=== PATIENT | male | born 1940 | race Caucasian/White ===

== ENCOUNTER 2017-06-24 17:12 | Emergency (ER) | payer OTHER ==
[2017-06-24] MEDS ORDERED: Sodium Chloride 0.9% 500 ML IV SCH (17:30)
[2017-06-24 18:02] LABS: CHLORIDE,CL 98 mmol/L (98-115); SODIUM,NA 139 mmol/L (136-145)
--- NOTE | 2017-06-24 18:02 | EDM.PDOC ---
ED HPI GENERAL MEDICAL PROBLEM - General Chief Complaint: Abdominal Pain Stated Complaint: ABDOMINAL PAIN Time Seen by Provider: 06/24/17 17:35 Source of Information: Reports: Patient History Limitations: Reports: No Limitations - History of Present Illness INITIAL COMMENTS - FREE TEXT/NARRATIVE: 77 YO WM presents to ER complaining of lower abdominal and low back pain x 2 weeks. Pt reports he has been having constipation and anorexia as well. Pt with PMH of lymphoma and bladder CA. Pt finished chemo for lymphoma 12/2016. Pt reports he has been followed closely by oncology. Pt has had CT abd/pelvis imaging in the recent past which showed no abnormalities. Pt denies fever/chills , no nausea/vomiting. Pt reports passing gas and has had recent BM of hard stool without blood. Pt denies dysuria, frequency or urgency. Onset Date: 06/10/17 Duration: Week(s): (2) Location: Reports: Abdomen, Back Quality: Reports: Ache Severity: Mild Improves with: Reports: None Worsens with: Reports: None Associated Symptoms: Reports: No Other Symptoms. Denies: Cough, Fever/Chills, Nausea/Vomiting, Shortness of Breath Lower Abdominal Pain Score (Numeric/FACES): 10 - Related Data Allergies Allergy/AdvReac Type Severity Reaction Status Date / Time No Known Drug Allergies Allergy Cannot Verified 06/24/17 17:21 Remember Home Meds: Home Meds Aspirin [Children's Aspirin] 81 mg PO BEDTIME 06/24/17 [History] Cephalexin [Keflex] 250 mg PO Q6H #40 cap 06/24/17 [Rx] Phenazopyridine [Pyridium] 200 mg PO TID PRN #6 tablet 06/24/17 [Rx] Polyethylene Glycol 3350 [MiraLAX] 17 gm PO DAILY #30 packet 06/24/17 [Rx] Simvastatin [Zocor] 10 mg PO BEDTIME 06/24/17 [History] ED ROS GENERAL - Review of Systems Review Of Systems: See Below Constitutional: Reports: Weight Loss HEENT: Reports: No Symptoms Respiratory: Reports: No Symptoms Cardiovascular: Reports: No Symptoms Endocrine: Reports: No Symptoms GI/Abdominal: Reports: Abdominal Pain, Constipation, Decreased Appetite, Flatus : Reports: No Symptoms, Frequency Musculoskeletal: Reports: No Symptoms Skin: Reports: No Symptoms Neurological: Reports: No Symptoms Psychiatric: Reports: No Symptoms Hematologic/Lymphatic: Reports: No Symptoms Immunologic: Reports: No Symptoms ED EXAM, GI/ABD - Physical Exam Exam: See Below Exam Limited By: No Limitations General Appearance: Alert, WD/WN, No Apparent Distress Head: Atraumatic, Normocephalic Neck: Normal Inspection, Supple, Non-Tender, Full Range of Motion Respiratory/Chest: No Respiratory Distress, Lungs Clear, Normal Breath Sounds, No Accessory Muscle Use, Chest Non-Tender Cardiovascular: Normal Peripheral Pulses, Regular Rate, Rhythm, No Edema, No Gallop, No JVD, No Murmur, No Rub GI/Abdominal Exam: Normal Bowel Sounds, Soft, Non-Tender, No Organomegaly, No Distention, No Abnormal Bruit, No Mass, Pelvis Stable Back Exam: Normal Inspection, Full Range of Motion, NT Extremities: Normal Inspection, Normal Range of Motion, Non-Tender, Normal Capillary Refill, No Pedal Edema Neurological: Alert, Oriented, CN II-XII Intact, Normal Cognition, Normal Gait, Normal Reflexes, No Motor/Sensory Deficits Psychiatric: Normal Affect, Normal Mood Skin Exam: Warm, Dry, Intact, Normal Color, No Rash Lymphatic: No Adenopathy Course - Vital Signs Last Recorded V/S: Last Vital Signs Temp 36.2 C 06/24/17 17:18 Pulse 106 H 06/24/17 17:18 Resp 20 06/24/17 17:18 BP 120/71 06/24/17 17:18 Pulse Ox 94 L 06/24/17 17:18 - Orders/Labs/Meds Orders: Active Orders 24 hr Category Date Time Status Abdomen 1V Flat [CR] Stat Exams 06/24/17 17:28 Ordered Sodium Chloride 0.9% [Normal Saline] 500 ml Med 06/24/17 17:30 Active IV .BOLUS Medication Orders Sodium Chloride (Normal Saline) 500 mls @ 999 mls/hr IV .BOLUS JELANI Labs: Laboratory Tests 06/24/17 06/24/17 06/24/17 Range/Units 17:40 17:40 18:09 WBC 6.1 (5.0-10.0) 10^3/uL RBC 4.17 L (4.50-6.00) 10^6/uL Hgb 12.3 L (13.0-17.0) g/dL Hct 39.8 L (40.0-52.0) % MCV 95.5 H (82.0-92.0) fL MCH 29.5 (27.0-31.0) pg MCHC 30.9 L (32.0-36.0) g/dL RDW 16.0 H (11.5-14.5) % Plt Count 206 (150-300) 10^3/uL MPV 7.2 L (7.4-10.4) fL Neut % (Auto) 80.5 H (50.0-70.0) % Lymph % (Auto) 6.7 L (20.0-40.0) % [place] % (Auto) 12.1 H (2.0-8.0) % Eos % (Auto) 0.7 L (1.0-3.0) % Baso % (Auto) 0.0 (0.0-1.0) % Neut # (Auto) 5.0 (2.5-7.0) 10^3/uL Lymph # (Auto) 0.4 L (1.0-4.0) 10^3/uL [place] # (Auto) 0.7 (0.1-0.8) 10^3/uL Eos # (Auto) 0.0 L (0.1-0.3) 10^3/uL Baso # (Auto) 0.0 (0.0-0.1) 10^3/uL Sodium 139 (136-145) mmol/L Potassium 4.2 (3.3-5.3) mmol/L Chloride 98 (98-115) mmol/L Carbon Dioxide 33.3 H (21.0-32.0) mmol/L BUN 21 (6-25) mg/dL Creatinine 1.08 (0.51-1.17) mg/dL Est Cr Clr Drug Dosing 36.75 mL/min Estimated GFR (MDRD) > 60 mL/min Glucose 128 H (70-110) mg/dL Calcium 9.6 (8.7-10.3) mg/dL Total Bilirubin 0.4 (0.2-1.0) mg/dL AST 23 (15-37) U/L ALT 18 (12-78) U/L Alkaline Phosphatase 110 (46-116) IU/L Total Protein 7.3 (6.4-8.2) g/dL Albumin 2.86 L (3.00-4.80) g/dL Lipase 133 (73-393) U/L Specimen Type Urinvoid Urine Color Yellow (YELLOW) Urine Appearance Clear (CLEAR) Urine pH 5.5 (5.0-9.0) Ur Specific [place] 1.015 (1.005-1.030) Urine Protein Negative (NEGATIVE) mg/dL Urine Glucose (UA) Negative (NEGATIVE) mg/dL Urine Ketones Negative (NEGATIVE) mg/dL Urine Occult Blood Trace-lysed H (NEGATIVE) Urine Nitrite Negative (NEGATIVE) Urine Bilirubin Negative (NEGATIVE) Urine Urobilinogen 0.2 (0.2-1.0) E.U./dL Ur Leukocyte Esterase Trace H (NEGATIVE) Urine RBC 0-5 /HPF Urine WBC 20-30 H /HPF Ur Epithelial Cells Few /LPF Urine Bacteria Few (NONE TO FEW) /HPF Meds: Medications Generic Name Dose Route Start Last Admin Trade Name Freq PRN Reason Stop Dose Admin Sodium Chloride 500 mls @ 999 mls/hr 06/24/17 17:30 Normal Saline IV .BOLUS JELANI - Radiology Interpretation Free Text/Narrative:: 1. KUB- nonspecific bowel gas pattern; NAD Departure - Departure Time of Disposition: 18:47 Disposition: Home, Self-Care 01 Condition: Good Clinical Impression: Abdominal pain Qualifiers: Abdominal location: lower abdomen, unspecified Qualified Code(s): R10.30 - Lower abdominal pain, unspecified Constipation Qualifiers: Constipation type: unspecified constipation type Qualified Code(s): K59.00 - Constipation, unspecified Urinary tract infection Qualifiers: Urinary tract infection type: acute cystitis Hematuria presence: without hematuria Qualified Code(s): N30.00 - Acute cystitis without hematuria - Discharge Information Prescriptions: Cephalexin [Keflex] 250 mg PO Q6H #40 cap Phenazopyridine [Pyridium] 200 mg PO TID PRN #6 tablet PRN Reason: Pain Polyethylene Glycol 3350 [MiraLAX] 17 gm PO DAILY #30 packet Instructions: Constipation, Adult, [id number], Abdominal Pain, Adult, Easy-to -Read, Urinary Tract Infection, Adult Referrals: PCP,Not In Area [Primary Care Provider] - Forms: ED Department Discharge - My Orders Last 24 Hours: My Active Orders 06/24/17 17:28 Abdomen 1V Flat [CR] Stat 06/24/17 17:30 Sodium Chloride 0.9% [Normal Saline] 500 ml IV .BOLUS - Assessment/Plan Last 24 Hours: My Active Orders 06/24/17 17:28 Abdomen 1V Flat [CR] Stat 06/24/17 17:30 Sodium Chloride 0.9% [Normal Saline] 500 ml IV .BOLUS Assessment:: 1. UTI 2. constipation Plan: 1. Keflex 500mg PO Q6 x 10 days 2. magnesium citrate PRN 3. miralax QD 4. follow up with PCP for recheck 5. return to ER for worsening symptoms
[2017-06-24] MEDS ORDERED: Cephalexin 250 MG Cap PO ONE (18:35)
[2017-06-24] MEDS ORDERED: Phenazopyridine 100 MG Tab PO ONE (18:47)
== END 2017-06-24 19:00 | disposition home or self-care (01) ==
LOC: KA.ED 17:12
DX: N30.00 Acute cystitis without hematuria (principal); K59.00 Constipation, unspecified; Z79.899 Other long term (current) drug therapy
CPT/HCPCS: 36415; 74018; 80053; 81001; 83690; 85025; 99284; A9270; J7040

== ENCOUNTER 2017-07-06 17:13 | Emergency (ER) | payer OTHER ==
[2017-07-06] MEDS ORDERED: Sodium Chloride 0.9% 50 ML IV SCH (17:44)
[2017-07-06] MEDS ORDERED: Iopamidol 612 MG/ML 75 ML Bottle IV ONE (17:49)
[2017-07-06] MEDS ORDERED: Sodium Chloride 0.9% 1,000 ML IV ONE (18:05)
[2017-07-06] MEDS ORDERED: Sodium Chloride 0.9% 5 ML Syringe FLUSH PRN (18:05)
[2017-07-06 18:19] LABS: CHLORIDE,CL 100 mmol/L (98-115); SODIUM,NA 142 mmol/L (136-145)
--- NOTE | 2017-07-06 18:24 | EDM.PDOC ---
ED HPI GENERAL MEDICAL PROBLEM - General Chief Complaint: General Stated Complaint: back pain Time Seen by Provider: 07/06/17 18:18 Source of Information: Reports: Patient History Limitations: Reports: No Limitations - History of Present Illness INITIAL COMMENTS - FREE TEXT/NARRATIVE: Patient is a 77-year-old gentleman who presents to the emergency department with a complaint of lower abdominal pain. Pain is been going on for several weeks. Patient was admitted to the [place] one month ago for a 5 day stay. Patient was seen here on 06/24/2017 for similar symptoms and found to have a urinary tract infection. Patient does have a history of bladder cancer. Patient denies fever, cough, shortness of breath, chest pain, or any trauma. Onset: Gradual Duration: Week(s): Location: Reports: Abdomen Quality: Reports: Ache, Other (Cramping) Improves with: Reports: None Worsens with: Reports: None Associated Symptoms: Reports: Loss of Appetite, Malaise. Denies: Chest Pain, Cough, Nausea/Vomiting, Shortness of Breath Lower Back Pain Score (Numeric/FACES): 7 - Related Data Allergies Allergy/AdvReac Type Severity Reaction Status Date / Time No Known Drug Allergies Allergy Cannot Verified 06/24/17 17:21 Remember Home Meds: Home Meds Aspirin [Children's Aspirin] 81 mg PO BEDTIME 06/24/17 [History] Simvastatin [Zocor] 10 mg PO BEDTIME 06/24/17 [History] Social & Family History - Tobacco Use Smoking Status *Q: Former Smoker Years of Tobacco use: 60 Packs/Tins Daily: 1 Used Tobacco, but Quit: Yes Month Tobacco Last Used: jun 02 2017 - Caffeine Use Caffeine Use: Reports: Coffee, Soda, Tea - Recreational Drug Use Recreational Drug Use: No ED ROS GENERAL - Review of Systems Review Of Systems: ROS reveals no pertinent complaints other than HPI. Constitutional: Reports: Malaise, Decreased Appetite HEENT: Reports: No Symptoms Respiratory: Reports: No Symptoms Cardiovascular: Reports: No Symptoms Endocrine: Reports: No Symptoms GI/Abdominal: Reports: Abdominal Pain : Reports: Frequency Musculoskeletal: Reports: No Symptoms Skin: Reports: No Symptoms Neurological: Reports: No Symptoms Psychiatric: Reports: No Symptoms Hematologic/Lymphatic: Reports: No Symptoms Immunologic: Reports: No Symptoms ED EXAM, GENERAL - Physical Exam Exam: See Below Exam Limited By: No Limitations General Appearance: Alert, WD/WN, No Apparent Distress, Thin Eye Exam: Bilateral Eye: Normal Inspection Nose: Normal Inspection, Normal Mucosa, No Blood Throat/Mouth: Normal Inspection, Normal Oropharynx, No Airway Compromise Head: Atraumatic, Normocephalic Neck: Normal Inspection Respiratory/Chest: No Respiratory Distress, Lungs Clear, Normal Breath Sounds, No Accessory Muscle Use, Chest Non-Tender Cardiovascular: Regular Rate, Rhythm, No Murmur GI/Abdominal: Normal Bowel Sounds, Soft, Tender (Suprapubic) (Male) Exam: Normal Inspection Back Exam: Normal Inspection. No: CVA Tenderness (L), CVA Tenderness (R) Extremities: Normal Inspection, Non-Tender, No Pedal Edema Neurological: Alert, Oriented, Normal Cognition Psychiatric: Normal Affect, Normal Mood Skin Exam: Warm, Dry, Intact, Normal Color, No Rash Lymphatic: No Adenopathy Course - Orders/Labs/Meds Orders: Active Orders 24 hr Category Date Time Status Peripheral IV Care [RC] . DIRECTED Care 07/06/17 18:05 Active Abdomen Pelvis w Cont [CT] Stat Exams 07/06/17 18:04 Ordered Sodium Chloride 0.9% [Syrex Flush] Med 07/06/17 18:05 Active 5 ml FLUSH Q8HR PRN Peripheral IV Insertion Adult [OM.PC] Routine Oth 07/06/17 18:05 Ordered Medication Orders Sodium Chloride (Syrex Flush) 5 ml FLUSH Q8HR PRN PRN Reason: Keep Vein Open Labs: Laboratory Tests 07/06/17 07/06/17 07/06/17 Range/Units 17:55 17:55 18:55 WBC 5.5 (5.0-10.0) 10^3/uL RBC 3.70 L (4.50-6.00) 10^6/uL Hgb 11.0 L (13.0-17.0) g/dL Hct 34.0 L (40.0-52.0) % MCV 91.9 (82.0-92.0) fL MCH 29.8 (27.0-31.0) pg MCHC 32.4 (32.0-36.0) g/dL RDW 14.4 (11.5-14.5) % Plt Count 349 H (150-300) 10^3/uL MPV 7.6 (7.4-10.4) fL Neut % (Auto) 77.1 H (50.0-70.0) % Lymph % (Auto) 6.6 L (20.0-40.0) % [place] % (Auto) 15.3 H (2.0-8.0) % Eos % (Auto) 0.2 L (1.0-3.0) % Baso % (Auto) 0.8 (0.0-1.0) % Neut # (Auto) 4.3 (2.5-7.0) 10^3/uL Lymph # (Auto) 0.4 L (1.0-4.0) 10^3/uL [place] # (Auto) 0.8 (0.1-0.8) 10^3/uL Eos # (Auto) 0.0 L (0.1-0.3) 10^3/uL Baso # (Auto) 0.0 (0.0-0.1) 10^3/uL Sodium 142 (136-145) mmol/L Potassium 3.7 (3.3-5.3) mmol/L Chloride 100 (98-115) mmol/L Carbon Dioxide 33.3 H (21.0-32.0) mmol/L BUN 21 (6-25) mg/dL Creatinine 1.04 (0.51-1.17) mg/dL Est Cr Clr Drug Dosing TNP Estimated GFR (MDRD) > 60 mL/min Glucose 162 H (70-110) mg/dL Calcium 9.3 (8.7-10.3) mg/dL Total Bilirubin 0.2 (0.2-1.0) mg/dL AST 29 (15-37) U/L ALT 20 (12-78) U/L Alkaline Phosphatase 103 (46-116) IU/L Total Protein 6.9 (6.4-8.2) g/dL Albumin 2.68 L (3.00-4.80) g/dL Specimen Type Urinvoid Urine Color Yellow (YELLOW) Urine Appearance Clear (CLEAR) Urine pH 6.5 (5.0-9.0) Ur Specific [place] 1.020 (1.005-1.030) Urine Protein Trace H (NEGATIVE) mg/dL Urine Glucose (UA) Negative (NEGATIVE) mg/dL Urine Ketones Negative (NEGATIVE) mg/dL Urine Occult Blood Negative (NEGATIVE) Urine Nitrite Negative (NEGATIVE) Urine Bilirubin Negative (NEGATIVE) Urine Urobilinogen 0.2 (0.2-1.0) E.U./dL Ur Leukocyte Esterase Negative (NEGATIVE) Urine RBC 0-5 /HPF Urine WBC 0-5 /HPF Ur Epithelial Cells Few /LPF Urine Bacteria Few (NONE TO FEW) /HPF Meds: Medications Generic Name Dose Route Start Last Admin Trade Name Freq PRN Reason Stop Dose Admin Sodium Chloride 5 ml 07/06/17 18:05 Syrex Flush FLUSH Q8HR PRN Keep Vein Open Discontinued Medications Generic Name Dose Route Start Last Admin Trade Name Freq PRN Reason Stop Dose Admin Sodium Chloride 1,000 mls @ 999 mls/hr 07/06/17 18:05 Normal Saline IV 07/06/17 19:05 .BOLUS ONE - Radiology Interpretation Free Text/Narrative:: CT abdomen and pelvis shows retroperitoneal adenopathy, nonspecific bilateral lower lobe lung nodules, no evidence of obstruction. These findings are not of an acute nature. CT Results Date: 07/06/17 - Re-Assessments/Exams Free Text/Narrative Re-Assessment/Exam: 07/06/17 19:55 Patient afebrile, nontoxic appearing, vital signs stable. Pain subsided. Patient will follow-up at the [place] as scheduled next week. Departure - Departure Time of Disposition: 19:56 Disposition: Home, Self-Care 01 Condition: Good Clinical Impression: Abdominal pain Qualifiers: Abdominal location: lower abdomen, unspecified Qualified Code(s): R10.30 - Lower abdominal pain, unspecified Lymphoma Qualifiers: Lymphoma type: unspecified type Lymphoma site: intrapelvic nodes Qualified Code (s): C85.96 - Non-Hodgkin lymphoma, unspecified, intrapelvic lymph nodes - Discharge Information Instructions: Hodgkin Lymphoma, Adult, Malnutrition, Abdominal Pain, Adult, [id number] Forms: ED Department Discharge Additional Instructions: [facility] Return to the emergency department sooner if symptoms continue or worsen. - My Orders Last 24 Hours: My Active Orders 07/06/17 18:04 Abdomen Pelvis w Cont [CT] Stat 07/06/17 18:05 Peripheral IV Care [RC] . DIRECTED Sodium Chloride 0.9% [Syrex Flush] 5 ml FLUSH Q8HR PRN Peripheral IV Insertion Adult [OM.PC] Routine - Assessment/Plan Last 24 Hours: My Active Orders 07/06/17 18:04 Abdomen Pelvis w Cont [CT] Stat 07/06/17 18:05 Peripheral IV Care [RC] . DIRECTED Sodium Chloride 0.9% [Syrex Flush] 5 ml FLUSH Q8HR PRN Peripheral IV Insertion Adult [OM.PC] Routine Assessment:: Abdominal pain Plan: [facility]
[2017-07-06] MEDS ORDERED: Ketorolac 30 MG/ML SDV IVPUSH ONE (19:48)
[2017-07-06] MEDS ORDERED: Ketorolac 30 MG/ML SDV ONE (19:49)
== END 2017-07-06 20:05 | disposition home or self-care (01) ==
LOC: KA.ED 17:13
DX: R10.30 Lower abdominal pain, unspecified (principal); C85.96 Non-Hodgkin lymphoma, unspecified, intrapelvic lymph nodes; Z87.891 Personal history of nicotine dependence
CPT/HCPCS: 36415; 74176; 74177; 80053; 81001; 85025; 96361; 96374; 99284; J1885; J7030